=== PATIENT | female | born 1990 | race African-American/Black ===

== ENCOUNTER 2023-02-11 20:35 | Emergency (ER) | payer OTHER, SELFPAY ==
--- NOTE | ~2023-02-11 | XR_ITS ---
EXAMINATION: XR hand RT min 3V DATE: 02/11/2023 21:56 INDICATION: Crush injury to the right hand TECHNIQUE: Posteroanterior, 2 oblique and lateral views of the right hand were obtained. COMPARISON: None. FINDINGS: Nondisplaced oblique fracture at the neck of the right second metacarpal. . No other fractures identi fied. Alignment remains anatomic. Joint spaces are normal. IMPRESSION: 1. Nondisplaced extra articular fracture at the distal neck of the right second metacarpal. Reviewed, dictated and finalized at location [facility]
[2023-02-11 21:01] VITALS: BP 127/75; PULSE 104; RESP 20; TEMP 36.6; O2SAT 98
[2023-02-11 23:56] VITALS: BP 114/64; PULSE 76; RESP 18; O2SAT 100
[2023-02-12 03:16] VITALS: PULSE 84; RESP 16; O2SAT 100
[2023-02-12 03:17] VITALS: BP 107/66
[2023-02-12] MEDS: HYDROcodone/acetaminophen (*CRX) 5-325 MG TABLET 1 TAB PO (03:59)
--- NOTE | 2023-02-12 04:04 | ED.GENADULT ---
HPI - General Adult General Chief complaint: Extremity Injury, Upper Stated complaint: right hand pain Time Seen by Provider: 02/12/23 03:37 History of Present Illness HPI narrative: patient is a 32-year-old female who presents emerged from with chief complaint of right hand injury. Patient reports that this evening around 1930 she had a truck door slam on her right hand. The patient reports she has swelling and pain at the 2nd metacarpal. The patient denies laceration reports that the pain is worse with movement and improved with rest Related Data Allergies Allergy/AdvReac Type Severity Reaction Status Date / Time No Known Allergies Allergy Verified 02/12/23 03:17 Review of Systems Review of Systems: A 10 system review of systems was completed on the patient and is negative except for what is stated in the HPI. Nursing and ancillary documentation was reviewed. Exam Narrative: GENERAL: Well-appearing, well-nourished, and in no acute distress. HEAD: Normocephalic, atraumatic. EYES: PERRLA and EOMI. ENT: Nares clear, no rhinorrhea or epistaxis. Mucous membranes moist. NECK: Supple. CHEST: Clear to auscultation. No respiratory distress. HEART: Regular rate and rhythm. No murmur heard. Normal peripheral pulses. ABDOMEN: Soft, nontender, nondistended, normal active bowel sounds. EXTREMITIES: Normal range of motion there is swelling present at the 2nd and 3rd metacarpal. No edema. SKIN: Warm, dry, no rash. NEURO: No focal deficits. Alert and oriented x3. PSYCH: Normal mood and affect. Course Vital Signs Vital signs: Vital Signs Temperature 36.6 C 02/11/23 21:01 Pulse Rate 104 H 02/11/23 21:01 Respiratory Rate 20 02/11/23 21:01 Blood Pressure 127/75 02/11/23 21:01 Pulse Oximetry 98 02/11/23 21:01 Oxygen Delivery Room Air 02/11/23 21:01 Temperature 36.6 C 02/11/23 21:01 Pulse Rate 84 02/12/23 03:16 Respiratory Rate 16 02/12/23 03:16 Blood Pressure 107/66 02/12/23 03:17 Pulse Oximetry 100 02/12/23 03:16 Oxygen Delivery Room Air 02/11/23 21:01 Medical Decision Making [facility] Narrative Medical decision making narrative: differential diagnosis includes fracture, contusion plain film x-rays of the right hand showed:. Nondisplaced extra articular fracture at the distal neck of the right second metacarpal. Vital Signs Vital Signs: Vital Signs Temperature 36.6 C 02/11/23 21:01 Pulse Rate 104 H 02/11/23 21:01 Respiratory Rate 20 02/11/23 21:01 Blood Pressure 127/75 02/11/23 21:01 Pulse Oximetry 98 02/11/23 21:01 Oxygen Delivery Room Air 02/11/23 21:01 Temperature 36.6 C 02/11/23 21:01 Pulse Rate 84 02/12/23 03:16 Respiratory Rate 16 02/12/23 03:16 Blood Pressure 107/66 02/12/23 03:17 Pulse Oximetry 100 02/12/23 03:16 Oxygen Delivery Room Air 02/11/23 21:01 Discharge Plan Discharge Clinical Impression: Fracture of second metacarpal bone Qualifiers: Encounter type: initial encounter Fracture type: closed Metacarpal location: neck Fracture alignment: nondisplaced Laterality: right Qualified Code(s): S62.360A - Nondisplaced fracture of neck of second metacarpal bone, right hand, initial encounter for closed fracture Patient Disposition: Home, Self-Care Condition: Stable Instructions: Antibiotic Form, Hand Fracture (ED), Splint Care (ED) Prescriptions: New hydrocodone-acetaminophen 5-325 mg tablet 1 tablet PO Q6H PRN (Reason: pain) 3 Days Qty: 12 0RF Follow-up/Referrals: Ismael Moss MD [Physician] - UNKNOWN,DOCTOR [Non-Staff] - Time of Disposition: 04:09
== END 2023-02-12 04:22 | disposition home or self-care (01) ==
PROVIDERS: Emergency Provider Emergency Medicine
DX: S62.360A Nondisplaced fracture of neck of second metacarpal bone, right hand, initial encounter for closed fracture (principal); W23.0XXA Caught, crushed, jammed, or pinched between moving objects, initial encounter
CPT/HCPCS: 29125; 73130; 99284; A9270